=== PATIENT | female | born 1990 | race Caucasian/White ===

== ENCOUNTER 2019-02-03 22:30 | Emergency (ER) | payer OTHER ==
[~2019-02-03] VITALS: Ht 149.9 cm; Wt 100.7 kg
[~2019-02-03 22:30] MED LIST: SPRINTEC1 EACH PO
[2019-02-03] MEDS ORDERED: KEFLEX500 M1 PO (23:13)
[2019-02-03 23:27] VITALS: BP 127/76
== END 2019-02-03 23:27 | disposition home or self-care (01) ==
LOC: M.ERS 22:30
DX: L03.115 Cellulitis of right lower limb (principal); M54.9 Dorsalgia, unspecified; E03.9 Hypothyroidism, unspecified

== ENCOUNTER 2021-07-15 22:22 | Inpatient (IN) | payer OTHER ==
[~2021-07-15] VITALS: Ht 149.9 cm; Wt 111.8 kg
[~2021-07-15 22:22] MED LIST changes: +KEFLEX500 M1 PO
[2021-07-15 22:40] VITALS: BP 104/66
[2021-07-15 23:03] LABS: ABSOLUTE LYMPHOCYTES 0.8 thou/uL (0.8-5.3); ABSOLUTE MONOCYTES 0.1 thou/uL (0.0-1.2); ABSOLUTE NEUTROPHILS 3.9 thou/uL (1.6-8.1); BASOPHILS 0.4 %; EOSINOPHILS 0.5 %; HEMATOCRIT 31.3 % (37.0-47.0); HEMOGLOBIN 10.5 gm/dL (12.0-15.0); LYMPHOCYTES 16.7 %; MCHC 33.6 g/dL (28.0-37.0); MCV 98.2 fL (80.0-100.0); MONOCYTES 2.2 %; MPV 9.1 fl. (7.2-11.1); NUCLEATED RBCS 0 /100WBC; PLATELET COUNT* 133 thou/uL (150-400); POLYS 80.2 %; RBC 3.19 mil/uL (4.20-5.00); RDW-CV 14.6 % (10.5-14.5); WBC 4.9 thou/uL (4.0-11.0)
[2021-07-15 23:17] LABS: BE -0.5 mmol/L (-2 to +3); PCO2 40.4 mmHg (35.0-45.0); PO2 76.2 mmHg (75.0-100.0); pH 7.397 (7.340-7.450)
[2021-07-15 23:46] LABS: INFLUENZA A ANTIGEN Negative (Negative); INFLUENZA B ANTIGEN Negative (Negative)
[2021-07-15 23:47] LABS: CALCIUM 8.2 mg/dL (8.5-10.1); CREATININE 1.5 mg/dL (0.6-1.3); POTASSIUM 3.3 mmol/L (3.5-5.1)
[2021-07-15 23:52] LABS: ALBUMIN 4.1 g/dL (3.4-5.0); MAGNESIUM 2.2 mg/dL (1.8-2.4); TOTAL BILIRUBIN 0.3 mg/dL (<0.1-1.0)
[2021-07-16 02:31] VITALS: BP 104/67
[2021-07-16 06:08] VITALS: BP 93/63
--- NOTE | 2021-07-16 09:01 | NUR ---
PT MOVED TO ROOM ER 13 WITH ALL BELONGINGS AND ON HEATED HIGH FLOW 02.
[2021-07-16 10:00] VITALS: BP 104/67
[2021-07-16 14:00] VITALS: BP 104/67
[2021-07-16 18:00] VITALS: BP 119/81
[2021-07-16 21:33] LABS: ABSOLUTE LYMPHOCYTES 0.5 thou/uL (0.8-5.3); ABSOLUTE MONOCYTES 0.1 thou/uL (0.0-1.2); ABSOLUTE NEUTROPHILS 3.2 thou/uL (1.6-8.1); BASOPHILS 0.4 %; EOSINOPHILS 0.1 %; HEMATOCRIT 27.2 % (37.0-47.0); HEMOGLOBIN 9.2 gm/dL (12.0-15.0); LYMPHOCYTES 14.3 %; MCH 32.7 pg (26.0-34.0); MCHC 33.8 g/dL (28.0-37.0); MCV 96.8 fL (80.0-100.0); MPV 8.6 fl. (7.2-11.1); NUCLEATED RBCS 0 /100WBC; PLATELET COUNT* 125 thou/uL (150-400); POLYS 83.2 %; RBC 2.81 mil/uL (4.20-5.00); RDW-CV 14.5 % (10.5-14.5); WBC 3.8 thou/uL (4.0-11.0)
[2021-07-16 21:41] LABS: CALCIUM 7.3 mg/dL (8.5-10.1); CREATININE 1.2 mg/dL (0.6-1.3); POTASSIUM 3.1 mmol/L (3.5-5.1)
[2021-07-16 21:45] LABS: ALBUMIN 3.5 g/dL (3.4-5.0); MAGNESIUM 2.1 mg/dL (1.8-2.4); TOTAL BILIRUBIN 0.2 mg/dL (<0.1-1.0); TOTAL PROTEIN 7.4 g/dL (6.4-8.2)
[2021-07-16 21:46] LABS: APTT 34.7 Seconds (25.0-31.3); PROTIME 9.8 Seconds (9.20-11.50)
[2021-07-16 22:59] VITALS: BP 96/54
[2021-07-17 02:00] VITALS: BP 107/66
[2021-07-17 03:43] LABS: HEMATOCRIT 28.5 % (37.0-47.0); HEMOGLOBIN 9.4 gm/dL (12.0-15.0); MCHC 33.2 g/dL (28.0-37.0); MCV 99.3 fL (80.0-100.0); MPV 8.5 fl. (7.2-11.1); NUCLEATED RBCS 0 /100WBC; PLATELET COUNT* 128 thou/uL (150-400); RBC 2.87 mil/uL (4.20-5.00); RDW-CV 14.7 % (10.5-14.5); WBC 5.2 thou/uL (4.0-11.0)
[2021-07-17 04:12] LABS: ALBUMIN 3.5 g/dL (3.4-5.0); CALCIUM 7.4 mg/dL (8.5-10.1); CREATININE 1.1 mg/dL (0.6-1.3); MAGNESIUM 2.1 mg/dL (1.8-2.4); POTASSIUM 3.5 mmol/L (3.5-5.1); TOTAL BILIRUBIN 0.2 mg/dL (<0.1-1.0); TOTAL PROTEIN 7.4 g/dL (6.4-8.2)
[2021-07-17 06:11] VITALS: BP 116/75
[2021-07-17 07:27] LABS: ABSOLUTE LYMPHOCYTES 0.6 thou/uL (0.8-5.3); ABSOLUTE MONOCYTES 0.2 thou/uL (0.0-1.2); ABSOLUTE NEUTROPHILS 4.4 thou/uL (1.6-8.1); PLATELET ESTIMATE ADEQUATE
[2021-07-17 09:35] VITALS: BP 126/84
[2021-07-17 13:37] VITALS: BP 105/66
[2021-07-17 16:16] VITALS: BP 146/96
--- NOTE | 2021-07-17 18:47 | NUR ---
CM ATTEMPTED TO COMPLETE ASSESSMENT, BUT CALLS PLACED TO PT ROOM WERE NOT ANSWERED AND CALLS PLACED TO ONLY AUTHORIZED CONTACT ON FILE COULD NOT BE ANSWERED THE PHONE NUMBER WAS NOT IN SERVICE. CM TO FOLLOWUP.
--- NOTE | 2021-07-17 19:52 | NUR ---
Spoke to Dr. Prado about pt's ABG ordered. Spo2 now improved, abg attempted X3. Dr. Prado is ok with holding on ABG for now while Spo2 is above 88%. Will monitor pt closely for remainder of shift.
[2021-07-18 00:28] LABS: BE 1.1 mmol/L (-2 to +3); PCO2 41.6 mmHg (35.0-45.0); PO2 66.8 mmHg (75.0-100.0); pH 7.411 (7.340-7.450)
[2021-07-18 00:53] VITALS: BP 96/56
--- NOTE | 2021-07-18 01:11 | NUR ---
SPO2 LOW AT 86%. CHECKED PT ON BIPAP. VOLUME ONLY AT 200-250 RANGE WITH PIP AT 11. MIN PRESSURE SET AT 16, MAX PRESSURE INCREASED TO 30. BIPAP DID NOT RESPONSE WITH A HIGHER PIP TO ACHEIVE SET VT 400. SPO2 STILL LOW. PT CHANGED TO BIPAP INITIALLY AT 16/12. VOLUME STILL LOW AT 200-230. IPAP INCREASED UNTIL VOLUME ACHEIVED AT 400. IPAP AT 28 BEFORE VOLUME OF 400 WAS ACHEIVED. PT WOKE UP SPONTANEOUSLY AND SPO2 INCREASED TO 98% IMMEDIATELY. IPAP DECREASED TO 16. PT REPOSITIONED TO HIGH CHAPPELL. WILL CONTINUE TO MONITOR.
[2021-07-18 04:28] LABS: ABSOLUTE LYMPHOCYTES 0.8 thou/uL (0.8-5.3); ABSOLUTE MONOCYTES 0.2 thou/uL (0.0-1.2); ABSOLUTE NEUTROPHILS 5.8 thou/uL (1.6-8.1); BASOPHILS 0.3 %; HEMATOCRIT 29.7 % (37.0-47.0); MCH 32.5 pg (26.0-34.0); MCHC 33.6 g/dL (28.0-37.0); MCV 96.8 fL (80.0-100.0); MONOCYTES 3.1 %; MPV 8.1 fl. (7.2-11.1); NUCLEATED RBCS 0 /100WBC; PLATELET COUNT* 165 thou/uL (150-400); POLYS 84.6 %; RBC 3.07 mil/uL (4.20-5.00); RDW-CV 14.6 % (10.5-14.5); WBC 6.8 thou/uL (4.0-11.0)
[2021-07-18 05:23] VITALS: BP 95/45
[2021-07-18 05:55] LABS: ALBUMIN 3.6 g/dL (3.4-5.0); CALCIUM 7.5 mg/dL (8.5-10.1); CREATININE 1.3 mg/dL (0.6-1.3); MAGNESIUM 2.3 mg/dL (1.8-2.4); TOTAL BILIRUBIN 0.4 mg/dL (<0.1-1.0); TOTAL PROTEIN 7.5 g/dL (6.4-8.2)
--- NOTE | 2021-07-18 08:33 | NUR ---
PATIENT HAS SLEPT OFF AND ON DURING THE NIGHT. VSS ON BIPAP, ALTHOUGH OXYGEN SATURATION IS LOW AT TIMES WHEN PATIENT FALLS INTO DEEP SLEEP, BUT THEN WHEN NURSE GOES IN TO CHECK ON PATIENT AND WAKES PATIENT UP AND REMINDS HER TO TAKE DEEP BREATHS, OXYGEN SATURATION COMES BACK UP INTO THE 90'S. NOTIFIED AND ABG'S ORDERED. PATIENT IS BELEIVED TO HAVE POSSIBLE SLEEP APNEA PER FAMILY MEMBER. MEDICATIONS GIVEN ORDERED AND CHARTED. IV IN RIGHT AC-SL. PATIENT EDUCATED ON IMPORTANCE OF WEARING BIPAP AND KEEPING OXYGEN SATURATION UP. PATIENT INSTRUCTED TO USE CALL LIGHT WHEN NEEDING ASSISTANCE. HOURLY ROUNDS MADE. WILL CONTINUE WITH PLAN OF CARE AND NURSING TO MONITOR.
--- NOTE | 2021-07-18 10:36 | EKG ---
[place] [address] ELECTROCARDIOGRAM REPORT Name: DEJUAN CABA Room: [address] ADM IN .R.#: [id number] Admission: 07/15/21 Attend Phys: Kendra Middleton, Discharge: Date of : 89 Date of Service: 07/16/21 0017 Report #: [id number] THIS REPORT FOR: //name// [facility] ED Test Date: 2021-07-16 Test Time: 00:17:41 Pat Name: DEJUAN CABA Department: Room: [address] Gender: F Customer Relations Specialist: : 1990 Requested By: Emely Rose Order Number: [id number] MD: Brody Bustillo Measurements Intervals [place] Rate: 93 P: -5 VT: 184 QRS: 113 QRSD: 103 T: -56 QT: 410 QTc: 511 Interpretive Statements Sinus rhythm Right axis deviation Low voltage, precordial leads Nonspecific T abnrm, anterolateral leads Prolonged QT interval No previous ECG available for comparison Electronically Signed On 07-18-2021 10:36:15 PAINT GRINDER by Brody Bustillo [email or web address] <ELECTRONICALLY SIGNED> By: Brody Bustillo MD, FAC 07/18/21 1036 0017 0017 Brody Bustillo MD, FAC /EPI
--- NOTE | 2021-07-18 13:59 | NUR ---
Nutrition: Pt admitted to COVID unit. Meds: remdesivir, l. acidophilus, vit C, albuterol. On bipap. Assessed for high BMI. Wt: 246#. Labs: BG 132-172, albumin 3.6. NPO currently. Cannot visit with pt in room d/t COVID. Gradual wt loss would be goal. Consider low nutrition risk at this time.
[2021-07-18 14:13] VITALS: BP 98/56
--- NOTE | 2021-07-18 16:20 | NUR ---
CM UNABLE TO SPEAK WITH PT OR AUTHORIZED CONTACT. PT DID NOT ANSWER ROOM PHONE AND AUTHORIZED CONTACT NUMBER IS DISCONNECTED. CM TO FOLLOW.
[2021-07-18 17:41] VITALS: BP 100/40
[2021-07-18 22:50] VITALS: BP 93/53
[2021-07-19] VITALS: BP 117/60
[2021-07-19 04:00] VITALS: BP 104/49
[2021-07-19 07:38] LABS: ABSOLUTE LYMPHOCYTES 1.3 thou/uL (0.8-5.3); ABSOLUTE MONOCYTES 0.4 thou/uL (0.0-1.2); ABSOLUTE NEUTROPHILS 6.3 thou/uL (1.6-8.1); BASOPHILS 0.2 %; HEMATOCRIT 29.5 % (37.0-47.0); HEMOGLOBIN 9.6 gm/dL (12.0-15.0); LYMPHOCYTES 16.1 %; MCH 32.6 pg (26.0-34.0); MCHC 32.7 g/dL (28.0-37.0); MCV 99.7 fL (80.0-100.0); MONOCYTES 5.4 %; MPV 8.3 fl. (7.2-11.1); NUCLEATED RBCS 0 /100WBC; PLATELET COUNT* 199 thou/uL (150-400); POLYS 78.3 %; RBC 2.96 mil/uL (4.20-5.00); WBC 8.1 thou/uL (4.0-11.0)
[2021-07-19 07:54] LABS: APTT 45.9 Seconds (25.0-31.3); PROTIME 10.7 Seconds (9.20-11.50)
[2021-07-19 07:55] VITALS: BP 99/68
--- NOTE | 2021-07-19 08:02 | NUR ---
PATIENT HAS SLEPT OFF AND ON DURING THE NIGHT. VSS ON BIPAP, ALTHOUGH OXYGEN SATURATION DOES DROP LOW AT TIMES WHEN PATIENT FALLS ASLEEP, MOVES AROUND IN BED, AND WHEN TAKING ORAL MEDICATIONS ORDERED, BUT TENDS TO GO BACK UP INTO THE 90'S WHEN AWAKE MOST OF THE TIME. PATIENT DID SLEEP IN THE PRONE POSITION SOME DURING THE NIGHT AND SATURATIONS WERE MUCH BETTER DURING THIS TIME. PATIENTS BLOOD PRESSURE HAS BEEN SLIGHTLY LOW WELL AT THE BEGINNING OF THE SHIFT AND MIDODRINE GIVEN ORDERED AND BLOOD PRESSURE MUCH BETTER THIS AM. STOCK TO DEPENDENT DRAINAGE WITH YELLOW URINE OUTPUT. IV IN RIGHT AC-SL. PATIENT ENCOURAGED TO LAY IN PRONE POSITION AND ON HER SIDE MUCH POSSIBLE. PATIENT INSTRUCTED TO USE CALL LIGHT WHEN NEEDING ASSISTANCE. HOURLY ROUNDS MADE. WILL CONTINUE WITH PLAN OF CARE AND NURSING TO MONITOR.
[2021-07-19 08:25] LABS: PHOSPHORUS* 2.4 mg/dL (2.5-4.9)
[2021-07-19 08:45] LABS: ALBUMIN 3.4 g/dL (3.4-5.0); CALCIUM 7.6 mg/dL (8.5-10.1); CREATININE 1.4 mg/dL (0.6-1.3); MAGNESIUM 2.4 mg/dL (1.8-2.4); POTASSIUM 3.9 mmol/L (3.5-5.1); TOTAL BILIRUBIN 0.3 mg/dL (<0.1-1.0); TOTAL PROTEIN 7.7 g/dL (6.4-8.2)
[2021-07-19 12:30] VITALS: BP 95/68
--- NOTE | 2021-07-19 14:17 | CON ---
[address] [address] CONSULTATION Name: DEJUAN CABA Room: [address] IN M.R.#: [id number] Admission: 07/15/21 Attend Phys: Kendra Middleton MD Discharge: Date of : 89 Report #: [id number] THIS REPORT FOR: cc: NAHEED - No family physician/PCP NAHEED - No family physician/PCP Rodrigo Prado MD ~ DATE OF CONSULTATION: 07/17/2021 REQUESTING PHYSICIAN: Dr. Soriano. INDICATION FOR CONSULTATION: Acute hypoxemic respiratory failure secondary to COVID-19. HISTORY OF PRESENT ILLNESS: A 30-year-old female. She has a history of hypothyroidism and is morbidly obese, body mass index is 50; however, does not have any other past medical history. She is only 30 years old. She has not been vaccinated for COVID-19. There is no history of smoking. The patient is now here with symptoms for about a week's duration. She has been having progressively increasing shortness of breath. She has had a cough. She does not describe any sputum production. She has been febrile. She has been progressively more fatigued. Also, reports having had significant night sweats, nausea and vomiting and brief episode of diarrhea as well as loss of appetite. The patient has been progressively declining. At this time, the patient is on 100% FiO2 with BiPAP. O2 saturation is being barely maintained with this. The patient is lying in the prone position, communication is difficult with the patient as she is in the prone position and has the BiPAP in place. REVIEW OF SYSTEMS: I asked her 12 questions for review of systems. Review of systems is negative except as mentioned, however, ability to communicate with the patient was limited. PAST MEDICAL HISTORY: Morbid obesity, body mass index 50. SOCIAL HISTORY: No known history of smoking, ethanol abuse, or drug abuse. CURRENT MEDICATIONS: List in [employer] reviewed. HOME MEDICATIONS: List in [employer] reviewed. FAMILY HISTORY: No pertinent family history. ALLERGIES: [place] [address] CONSULTATION Name: GERTRUDISDEJUAN SANDY Room: [address] IN [facility].#: [id number] Admission: 07/15/21 Attend Phys: Kendra Middleton MD Discharge: Date of : 89 Report #: [id number] PHYSICAL EXAMINATION: GENERAL: She is alert, awake and oriented. VITAL SIGNS: She is on a BiPAP 100% FiO2, O2 saturation has been variable between 88% to the mid 90s. Vitals in the records reviewed. NECK: Does not show raised JVP. CHEST: Breath sounds are bilaterally equal. No added sounds. HEART: Regular. No murmur. ABDOMEN: Soft and nontender. EXTREMITIES: Lower extremities, 1+ edema. No calf tenderness. SKIN: Dry and intact. NEUROLOGIC: No focal deficit. LABORATORY DATA: The patient's lab work in [facility] reviewed. Chest x-rays consistent with ARDS secondary to COVID-19 in [facility] reviewed. ASSESSMENT AND PLAN: 1. Acute hypoxemic respiratory failure secondary to COVID-19. We have her on AVAPS on the BiPAP with 100% FiO2. She is barely being maintained. I feel that at this point we can still watch her closely; however, if she fails to improve or declines, she likely will need endotracheal intubation. 2. COVID-19 leading to ARDS. Agree with dexamethasone. We will also continue remdesivir. Her LFTs are elevated; however, potential benefit the risk. Follow LFTs. I recommend giving her Actemra. The family informs me that there is not a single dose of Actemra available. I asked pharmacy to call us whenever Actemra becomes available as she is likely to benefit. Noted that there is an order for a unit of convalescent plasma from the primary service as well. I do not feel strongly either way regarding this. 3. Pulmonary infiltrates. These are likely primarily due to ARDS secondary to COVID-19. However, considering the severity of her respiratory failure for now I went ahead and broaden antibiotic coverage. I did order linezolid in addition to Zosyn and kept azithromycin. We will need to watch her platelets closely. 4. Evaluation for thromboembolic phenomena/elevated D-dimer. I ordered a CTA chest last night, it has not been performed, although it will be high risk to transport her to CT. We will see if we are able to get venous Dopplers. Otherwise, it appears to be a low risk to give her full dose anticoagulation, then to do a CTA chest. Therefore, for now holding off on a CTA chest. We will do full dose Lovenox. If later on we are able to maintain O2 saturation in the supine position to be able to do an echo. Then, I would do an echo as well. 5. Morbid obesity/obstructive sleep apnea, on clinical grounds. AVAPS as above. We will need a long-term CPAP or BiPAP or AVAPS. 6. Fluid overload. We will give one dose of Lasix and Aldactone with potassium replacement. We gave her midodrine to avoid drop in blood pressure. 7. Gastrointestinal prophylaxis, on Protonix. 8. Clostridium difficile prophylaxis, Lactinex. [address] [place] [address] CONSULTATION Name: DEJUAN CABA Room: [address]#: [id number] Admission: 07/15/21 Attend Phys: Kendra Middleton MD Discharge: Date of : 89 Report #: [id number]. The patient is critically ill at this time. Total time spent providing critical care to this patient today exceeds 36 minutes. <ELECTRONICALLY SIGNED> By: Rodrigo Prado MD 07/19/21 1417 1457 1842Aramiro Prado MD /nt
--- NOTE | 2021-07-19 14:55 | NUR ---
CM FOLLOWUP PT NOT MED CLEAR. PT ON BIPAP 100 AND NO CONTACT IS POSSIBLE WITH PT VIA PHONE. NO ACTIVE NUMBERS FOR AUTHORIZED CONTACTS. CM TO FOLLOW.
[2021-07-19 15:42] LABS: PCO2 VENOUS 49.1 mmHg (41.0-51.0); PO2 VENOUS 56.4 mmHg (35.0-45.0)
[2021-07-19 15:51] LABS: CALCIUM 7.5 mg/dL (8.5-10.1); CREATININE 1.3 mg/dL (0.6-1.3); POTASSIUM 3.8 mmol/L (3.5-5.1)
[2021-07-19 18:22] VITALS: BP 115/72
[2021-07-19 20:00] VITALS: BP 101/72
--- NOTE | 2021-07-19 20:22 | NUR ---
Assumed care at 0730. Pt is alert and oriented. Assessment done and charted. Pt had PICC line placed today, however, the picc line was bleeding from the site. The site was reinforced and the picc line nurse was notified about this. Pt was also started on D5 1/2NS with 10MEQ of Potassium. Will continue to monitor pt while on bipap.
[2021-07-20 00:39] VITALS: BP 95/62
[2021-07-20 04:37] VITALS: BP 98/69
[2021-07-20 04:47] LABS: ABSOLUTE MONOCYTES 0.3 thou/uL (0.0-1.2); BASOPHILS 0.2 %; HEMOGLOBIN 9.3 gm/dL (12.0-15.0); LYMPHOCYTES 13.9 %; MCHC 33.2 g/dL (28.0-37.0); MCV 99.5 fL (80.0-100.0); MONOCYTES 4.2 %; MPV 8.9 fl. (7.2-11.1); NUCLEATED RBCS 0 /100WBC; PLATELET COUNT* 190 thou/uL (150-400); POLYS 81.7 %; RBC 2.82 mil/uL (4.20-5.00); RDW-CV 15.1 % (10.5-14.5); WBC 7.3 thou/uL (4.0-11.0)
--- NOTE | 2021-07-20 04:47 | NUR ---
ASSUMED CARE OF PT AFTER REPORT AT 1930. PT A&OX4. VSS. PHYSICAL ASSESSMENT COMPLETED AND CHARTED. PT ON CONTINUOUS BIPAP 100%. PT TRACING SR ON TELE. PT WITH STOCK TO DEPENDENT DRAIN. PT DENIES ANY PAIN. CALL LIGHT WITHIN REACH.
[2021-07-20 05:28] LABS: ALBUMIN 3.1 g/dL (3.4-5.0); CALCIUM 7.3 mg/dL (8.5-10.1); CREATININE 1.1 mg/dL (0.6-1.3); MAGNESIUM 2.5 mg/dL (1.8-2.4); PHOSPHORUS* 1.8 mg/dL (2.5-4.9); POTASSIUM 3.4 mmol/L (3.5-5.1); TOTAL BILIRUBIN 0.3 mg/dL (<0.1-1.0); TOTAL PROTEIN 7.2 g/dL (6.4-8.2)
[2021-07-20 09:00] VITALS: BP 97/70
[2021-07-20 12:00] VITALS: BP 104/72
[2021-07-20 16:00] VITALS: BP 91/56
--- NOTE | 2021-07-20 17:54 | NUR ---
CM FOLLOWUP PT NOT MED CLEAR AND 100% BIPAP. CM TO FOLLOW FOR FUTURE DC NEEDS.
[2021-07-20 22:15] VITALS: BP 106/65
--- NOTE | 2021-07-21 02:38 | NUR ---
ASSUMED CARE OF PT AT 1900. PT IS ALERT AND ORIENTED. VSS. PERRSTEFANIE. PT IS UNCOOPERATIVE WITH SOME TREATMENTS. PT ALSO WANTING TO LEAVE BIPAP OFF FOR PROLONGED PERIODS IN WHICH HER SPO2 DROPS DOWN INTO THE 40'S. PT EDUCATED ON THE IMPORTANCE OF BEING COMPLIANT ESPECIALLY WITH THE BIPAP. PT REFUSED VITAL SIGNS AT MIDNIGHT. PT IS IS CURRENTLY ON BIPAP WITH 100 PERCENT O2. PT IS IN SINUS RYTHM ON THE TELEMETRY. PT IS RESTING COMFORTABLY IN BED. RESPIRATIONS ARE EVEN AND NONLABORED. WILL CONTINUE TO MONITOR PT.
[2021-07-21 04:00] VITALS: BP 105/77
[2021-07-21 06:02] LABS: ABSOLUTE MONOCYTES 0.4 thou/uL (0.0-1.2); ABSOLUTE NEUTROPHILS 8.1 thou/uL (1.6-8.1); BASOPHILS 0.2 %; EOSINOPHILS 0.1 %; HEMATOCRIT 29.1 % (37.0-47.0); HEMOGLOBIN 9.6 gm/dL (12.0-15.0); LYMPHOCYTES 10.2 %; MCH 32.8 pg (26.0-34.0); MCHC 33.1 g/dL (28.0-37.0); MCV 99.1 fL (80.0-100.0); MONOCYTES 3.9 %; MPV 8.6 fl. (7.2-11.1); NUCLEATED RBCS 0 /100WBC; PLATELET COUNT* 194 thou/uL (150-400); POLYS 85.6 %; RBC 2.93 mil/uL (4.20-5.00); RDW-CV 14.7 % (10.5-14.5); WBC 9.4 thou/uL (4.0-11.0)
[2021-07-21 07:05] LABS: CALCIUM 7.6 mg/dL (8.5-10.1); CREATININE 1.1 mg/dL (0.6-1.3); MAGNESIUM 2.5 mg/dL (1.8-2.4); POTASSIUM 3.5 mmol/L (3.5-5.1); TOTAL BILIRUBIN 0.2 mg/dL (<0.1-1.0); TOTAL PROTEIN 6.9 g/dL (6.4-8.2)
[2021-07-21 08:00] VITALS: BP 106/68
[2021-07-21 13:00] VITALS: BP 103/63
--- NOTE | 2021-07-21 14:27 | NUR ---
AT 1400 UP TO CHAIR AND PLACED ON HIGH FLOW O2. PATIENT DID NOT TOLERATE FOR VERY LONG.O2 SAT WENT DOWN TO 55%. PLACED BACK ON BIPAP AT 100. PATIENT REMAINS IN CHAIR. PATIENT IS VERY FLAT, BUT HAS MANY COMPLAINTS.
--- NOTE | 2021-07-21 16:41 | NUR ---
CM FOLLOWUP PT NOT MED CLEAR AND ON 100% BIPAP. CM TO FOLLOW FOR FUTURE DC PLANNING NEEDS.
[2021-07-21 17:00] VITALS: BP 106/63
[2021-07-21 18:09] VITALS: BP 92/68
--- NOTE | 2021-07-21 19:48 | NUR ---
assumed care of patient post report from Arvin ISAACS gymnastic teacher. Patient is on bipap at 100%. Breath sounds are diminished. Patient is very dependent on the bipap. Did change to high flow for a short while today. O2 sat down to 50'S. BACK ON BIPAP 100%. PATIENT IS NOT COOPERATIVE IN REGARD TO TAKING ALL HER ORAL MEDICATIONS. PATIENT DOES DESAT EASILY WHEN THE MASK IS REMOVED TO SWALLOW PILLS. DID CRUSH PILLS, AND PLACED THEM IN APPLESAUCE. PATIENT HAS PIC RIGHT UPPER ARM. DRESSING IS INTACT, BUT DOES OOZE BLOOD AT SITE. PIC LINE PERSONNEL CAME TO CHECK THE SITE, AND ORDERED A PRODUCT TO PLACE AT SITE. THIS DID SEEM TO HELP WITH THE OOZING OF BLOOD. DAYAMI GAN DD. DR VAN CALLED AROUND 1800 TO SEE HOW PATIENT WAS DOING. UPDATED ON HIGH FLOW INTOLERANCE. ORDERS WERE NOTED. PATIENT GIVEN LASIX, METHYLPREDNISONE, AND WILL GET PHOSPHATE AFTER REMDESIVIR IS IN. 450ML UO THIS SHIFT.
[2021-07-22] VITALS (9 sets, daily range): BP systolic 75–116; BP diastolic 43–82
--- NOTE | 2021-07-22 01:29 | NUR ---
ASSUMED CARE OF PT AT 1900. PT IS ALERT AND ORIENTED. VSS. PERRLA. PT REQUIRING BIPAP AT [address] PERC[address]IO2. STOCK IN PLACE. NO COMPLAINTS OF PAIN. PT IS IN SINUS RYTHM ON THE TELEMETRY. PT IS RESTING COMFORTABLY IN BED. RESPIRATIONS ARE EVEN AND NONLABORED. WILL CONTINUE TO MONITOR PT.
[2021-07-22 03:53] LABS: BE 0.1 mmol/L (-2 to +3); PCO2 46.6 mmHg (35.0-45.0); pH 7.363 (7.340-7.450)
[2021-07-22 03:56] LABS: PO2 321.6 mmHg (75.0-100.0)
--- NOTE | 2021-07-22 08:44 | NUR ---
Assumed care of patient after report from Aubree ISAACS. Patient had a bad night. Became confused and agitated. SB on monitoring tech. Patient is on bipap.
[2021-07-22 14:44] LABS: BE 1.7 mmol/L (-2 to +3); pH 7.331 (7.340-7.450)
[2021-07-22 14:47] LABS: PCO2 55.1 mmHg (35.0-45.0)
[2021-07-22 15:24] LABS: HEMATOCRIT 32.4 % (37.0-47.0); HEMOGLOBIN 10.5 gm/dL (12.0-15.0); MCH 32.3 pg (26.0-34.0); MCHC 32.4 g/dL (28.0-37.0); MCV 99.6 fL (80.0-100.0); MPV 8.5 fl. (7.2-11.1); NUCLEATED RBCS 0 /100WBC; PLATELET COUNT* 170 thou/uL (150-400); RBC 3.25 mil/uL (4.20-5.00); RDW-CV 14.9 % (10.5-14.5); WBC 12.9 thou/uL (4.0-11.0)
--- NOTE | 2021-07-22 15:24 | NUR ---
PATIENT MOVED TO ROOM 115 BY BED AND ON OXYGEN. PATIENT HAD A ABG DRAWN AROUND 1400. CHANGES WERE MADE ON BIPAP. IPAP20/EPAP8, AND ABG IN 1 HOUR.
[2021-07-22 15:38] LABS: ALBUMIN 3.2 g/dL (3.4-5.0); CALCIUM 7.6 mg/dL (8.5-10.1); CREATININE 0.9 mg/dL (0.6-1.3); MAGNESIUM 2.8 mg/dL (1.8-2.4); POTASSIUM 3.7 mmol/L (3.5-5.1); TOTAL BILIRUBIN 0.2 mg/dL (<0.1-1.0)
[2021-07-22 15:59] LABS: ABSOLUTE LYMPHOCYTES 1.2 thou/uL (0.8-5.3); ABSOLUTE MONOCYTES 0.4 thou/uL (0.0-1.2); ABSOLUTE NEUTROPHILS 11.4 thou/uL (1.6-8.1)
[2021-07-22 16:00] LABS: PLATELET ESTIMATE ADEQUATE
[2021-07-22 16:59] LABS: URINE BILIRUBIN NEGATIVE (Negative); URINE BLOOD 3+ (Negative); URINE CLARITY CLEAR; URINE COLOR YELLOW; URINE GLUCOSE-RANDOM NEGATIVE (Negative); URINE KETONES NEGATIVE (Negative); URINE LEUKOCYTES NEGATIVE (Negative); URINE NITRITE NEGATIVE (Negative); URINE PROTEIN 1+ (Negative); URINE SPECIFIC GRAVITY 1.025 (1.005-1.030); URINE UROBILINOGEN 0.2 E.U./dl (0.2-1.0)
[2021-07-22 17:11] LABS: MUCUS None Seen strn/LPF (None Seen); SQUAMOUS NONE SEEN /LPF (0-3); URINE RBC >20 Many /HPF (0-2)
[2021-07-22 17:12] LABS: BACTERIA 1-9 Few /HPF (None Seen); CRYSTALS None Seen /LPF (None Seen); HYALINE CASTS 0-3 Few /LPF (None Seen); URINE WBC 0-5 Rare /HPF (0-5)
[2021-07-22 17:37] LABS: BE -0.2 mmol/L (-2 to +3); PCO2 44.6 mmHg (35.0-45.0); pH 7.372 (7.340-7.450)
[2021-07-22 17:43] LABS: PO2 53.7 mmHg (75.0-100.0)
--- NOTE | 2021-07-22 18:29 | NUR ---
Called abgs to dr conte. orders noted to increase peep 12 and abgs in 30 minutes.
--- NOTE | 2021-07-22 19:40 | NUR ---
THIS PATIENT HAS A VERY COMPROMISED RESPIRATORY SYSTEM. DR TIJERINA AWARE OF PATIENTS LABS AND ABGS. CALLED ELÍAS, AND HE WANTED DR. PETERSON CALLED. DR PETERSON IS AWARE OF PATIENTS RESPIRATORY STATUS. DID ORDER PEEP INCREASE TO 12, AND ABGS WILL BE REPEATED IN 30 MINUTES.
[2021-07-22 20:50] LABS: BE 2.2 mmol/L (-2 to +3); PCO2 44.2 mmHg (35.0-45.0); pH 7.407 (7.340-7.450)
[2021-07-22 20:55] LABS: PO2 40.7 mmHg (75.0-100.0)
--- NOTE | 2021-07-22 21:43 | NUR ---
SPOKE WITH THE PT SO RELATED STATUS CHANGE ROSALEE [phone]; EXPLAINED THE PTS CURRENT STATUS CRITICAL AND CHANGES THAT MAY REQUIRE INTUBATION; SO VERIFIED UNDERSTANDING; SET UP FOR VIDEO CALL WITH THE PATIENT; SO ENCOURAGED PT TO FIGHT; PT DROWSY VERY MINIMAL CONVERSATOIN; ENCOURAGED SO TO CALL HOSPITAL FREQUENTLY FOR UPDATES; WILL CALL IF PT GETS INTUBATED
--- NOTE | 2021-07-22 23:41 | NUR ---
[facility] TRANSFER CONTACTED NO ICU BEDS CURRENTLY; FAXED ALL TRANSFER INFORMATION TO [facility] [phone]; REPORTED THAT THEY WILL PLACE PT ON WAIT LIST IF BED BECOMES AVALIABLE.
[2021-07-23] VITALS (16 sets, daily range): BP systolic 79–111; BP diastolic 43–86
[2021-07-23 00:11] LABS: BE 3.2 mmol/L (-2 to +3); PCO2 33.4 mmHg (35.0-45.0); pH 7.509 (7.340-7.450)
--- NOTE | 2021-07-23 00:32 | NUR ---
CONTACTED [facility]; SPOKE WITH CHEO, PROVIDED INFORMATION REGARDING PT NEED FOR HIGHER LEVEL OF CARE; FAXED FACE SHEET TO [phone] SPOKE WITH NEXT OF KIN MOTHER COLBY PETERSON- [phone]; EXPLAINED PT IS CRITICAL CONDITION
--- NOTE | 2021-07-23 00:37 | NUR ---
CONTACTED [facility] [phone]; CURRENTLY HAS NO BEDS AVALIABLE FOR COVID, ICU OR ECMO BEDS; SPOKE WITH ROSAURA.
--- NOTE | 2021-07-23 01:04 | NUR ---
ASSUMED CARE OF PT AT ABOUT 2129. AT THAT TIME PT WAS NOT MAINTAINING HER SPO2 ON 100 PERCENT FIO2 WITH BIPAP. PT SPO2 FLUCTUATING FROM 60S TO 80S. DR PETERSON AND NURSING FRONT TENDER NOTIFIED OF PT CONDITION. PT WAS INTUBATED AT ABOUT [address] DAY FROM ER. PT WAS GIVEN 20 MG OF ETOMIDATE AT 2036, 100 MG OF SUCCINYLCHOLINE AT 2038, AND 10 MG OF VECURONIUM AT 2053. PT THEN GIVEN A 5MG BOLUS OF VERSED AT 2053 AND VERSED STARTED AT 2 MG/HR. ETT 23 CM AT THE LIP AND NG 61 CM AT THE NARE. CXR COMPLETED TO VERIFY PLACEMENT OF ETT AND NG TUBE. ORIGINAL VENT SETTING WERE VT 450, RR 22, 100 %, PEEP 12. HOWEVER, WE COULD NOT MAINTAIN PTS SPO2 ON THE VENTILATOR. ABG SHOWED PO2 AT 31. RESP AND NURSING STAFF HAS BEEN TAKING TURNS BAGGING THE PT TO KEEP SPO2 IN THE 80'S UNTIL 44. AT THAT TIME PT WAS PLACED ON ASSIST CONTROL, VT 500, RR 22, PEEP 16 AND FIO2 OF 100 %. AT 0010 LEVOPHED WAS STARTED AT 1MCG/KG/MIN. AND TITRATED DOWN TO 0.07 AT 0040. AT THIS TIME PT IS ON THE VENTILATOR AND RESTING COMFORTABLY. REPEAT ABG'S HAVE BEEN OBTAINED.
--- NOTE | 2021-07-23 01:04 | NUR ---
[facility] REPORTED THAT THEY ARE OVER THEIR CAPACITY FOR SELF PAY; THEY HAVE TO DECLINE THE PATIENT.
--- NOTE | 2021-07-23 01:17 | NUR ---
SPOKE WITH TANNER SERRANOSTEWARD/STEWARDESS SMOKE ROOM JOHN; UNABLE TO ACCEPT ANY PATIENTS AT THIS TIME DUE TO HIGH VOLUME, HOLDING ICU BEDS IN THE ER
[2021-07-23 01:35] LABS: BE 3.4 mmol/L (-2 to +3); PCO2 33.9 mmHg (35.0-45.0); pH 7.507 (7.340-7.450)
[2021-07-23 01:38] LABS: PO2 33.2 mmHg (75.0-100.0)
--- NOTE | 2021-07-23 02:28 | NUR ---
AT 0140 VERSED WAS TURNED UP TO 4MG/HR AND THEN AT 0220 VERSED TURNED TO 6MG. PT WAS ACCEPTED BY [facility] AND REPORT WAS CALLED TO CHEYENNE ISAACS. PT GOING TO RM 237. TRANSPORT IS BEING SET UP AT THIS TIME.
--- NOTE | 2021-07-23 02:48 | NUR ---
VERSED TURNED UP TO 8MG/HR. FENTANYL STARTED AT 25 MCG/HR.
--- NOTE | 2021-07-23 04:33 | NUR ---
PT LEFT VIA AMBULANCE AT 0400. CHEYENNE AT [facility] NOTIFIED THAT PT IS ON THE WAY. RT LETITIA ZAVALA IN AMBULANCE TO ASSIST AMBULANCE PERSONAL
== END 2021-07-23 04:00 | disposition short-term general hospital (02) | DRG 208 ==
LOC: M.ERS 22:22 → M.ORTHSURG 23:36 → M.TBA-ER 23:36 → M.ORTHSURG 23:36 → M.TBA-ER 07-16 17:02 → M.ORTHSURG 07-17 09:46
PROVIDERS: Family Medicine; Internal Medicine; Internal Medicine Critical Care Medicine; Pediatrics; Personal Emergency Response Attendant; ADMIT Internal Medicine; ATTEND Internal Medicine
PROC: XW033E5 Introduction of Remdesivir Anti-infective into Peripheral Vein, Percutaneous Approach, New Technology Group 5 (ICD-10-PCS; principal; 2021-07-16)
PROC: 5A09557 Assistance with Respiratory Ventilation, Greater than 96 Consecutive Hours, Continuous Positive Airway Pressure (ICD-10-PCS; principal; 2021-07-16)
PROC: 5A0935A Assistance with Respiratory Ventilation, Less than 24 Consecutive Hours, High Flow/Velocity Cannula (ICD-10-PCS; principal; 2021-07-16)
PROC: 02H633Z Insertion of Infusion Device into Right Atrium, Percutaneous Approach (ICD-10-PCS; 2021-07-19)
PROC: 5A1935Z Respiratory Ventilation, Less than 24 Consecutive Hours (ICD-10-PCS; 2021-07-23)
PROC: 0BH17EZ Insertion of Endotracheal Airway into Trachea, Via Natural or Artificial Opening (ICD-10-PCS; 2021-07-23)
DX: U07.1 COVID-19 (principal); J12.82 Pneumonia due to coronavirus disease 2019; J80 Acute respiratory distress syndrome; Z68.42 Body mass index [BMI] 45.0-49.9, adult; E03.9 Hypothyroidism, unspecified; E66.01 Morbid (severe) obesity due to excess calories; G47.33 Obstructive sleep apnea (adult) (pediatric); E87.6 Hypokalemia; E87.70 Fluid overload, unspecified; R74.01 Elevation of levels of liver transaminase levels; D64.9 Anemia, unspecified